=== PATIENT | male | born 1980 | race Caucasian/White ===

== ENCOUNTER 2018-02-03 10:22 | Outpatient (CLI) | payer OTHER | END 2018-02-03 10:23 | disposition home or self-care (01) | LOC: SC 10:22 | PROVIDERS: ATTEND Internal Medicine Pulmonary Disease | DX: G47.30 Sleep apnea, unspecified (principal); G47.10 Hypersomnia, unspecified; R06.83 Snoring; G47.8 Other sleep disorders | CPT/HCPCS: 99203; 99212 ==

== ENCOUNTER 2018-03-01 19:00 | Outpatient (CLI) | payer OTHER | END 2018-03-01 19:01 | disposition home or self-care (01) | LOC: SC 19:00 | PROVIDERS: ATTEND Internal Medicine Pulmonary Disease | DX: G47.33 Obstructive sleep apnea (adult) (pediatric) (principal); G47.61 Periodic limb movement disorder | CPT/HCPCS: 95810 ==

== ENCOUNTER 2018-03-26 09:09 | Outpatient (CLI) | payer OTHER | END 2018-03-26 09:10 | disposition home or self-care (01) | LOC: SC 09:09 | PROVIDERS: ATTEND Nurse Practitioner Family | DX: G47.33 Obstructive sleep apnea (adult) (pediatric) (principal); G47.61 Periodic limb movement disorder | CPT/HCPCS: 99212; 99214 ==

== ENCOUNTER 2018-06-03 09:59 | Outpatient (CLI) | payer OTHER | END 2018-06-03 10:00 | disposition home or self-care (01) | LOC: SC 09:59 | PROVIDERS: ATTEND Nurse Practitioner Family | DX: G47.33 Obstructive sleep apnea (adult) (pediatric) (principal) | CPT/HCPCS: 99212; 99214 ==

== ENCOUNTER 2018-07-09 08:31 | Outpatient (CLI) | payer OTHER | END 2018-07-09 08:32 | disposition home or self-care (01) | LOC: SC 08:31 | PROVIDERS: ATTEND Nurse Practitioner Family | DX: G47.33 Obstructive sleep apnea (adult) (pediatric) (principal) | CPT/HCPCS: 99212; 99214 ==

== ENCOUNTER 2018-08-12 14:41 | Outpatient (CLI) | payer OTHER | END 2018-08-12 14:42 | disposition home or self-care (01) | LOC: SC 14:41 | PROVIDERS: ATTEND Nurse Practitioner Family | DX: G47.33 Obstructive sleep apnea (adult) (pediatric) (principal) | CPT/HCPCS: 99212; 99214 ==

== ENCOUNTER 2018-10-06 16:10 | Outpatient (CLI) | payer OTHER | END 2018-10-06 16:11 | disposition home or self-care (01) | LOC: SC 16:10 | PROVIDERS: ATTEND Nurse Practitioner Family | DX: G47.33 Obstructive sleep apnea (adult) (pediatric) (principal) | CPT/HCPCS: 99212; 99214 ==

== ENCOUNTER 2019-05-04 13:40 | Outpatient (CLI) | payer OTHER | END 2019-05-04 13:41 | disposition home or self-care (01) | LOC: SC 13:40 | PROVIDERS: ATTEND Nurse Practitioner Family | DX: G47.33 Obstructive sleep apnea (adult) (pediatric) (principal) | CPT/HCPCS: 99212; 99214 ==

== ENCOUNTER 2019-06-17 11:08 | Outpatient (CLI) | payer OTHER ==
--- NOTE | 2019-06-17 12:09 | SLEEP CARE CONSULTATION ---
Information from patient questionnaire entered by Bonnie Abraham. I have reviewed and concur with the information entered by Bonnie Abraham. This document represents the service I personally performed and the decisions made by me, Kaylee Ramey, RN, MSN, ACCOUNTS RECEIVABLE BOOKKEEPER. History of Present Illness Previous diagnosis: Moderate, Obstructive Sleep Apnea-Hypopnea Syndrome AHI: 26.4 Reason for CPAP/BiPAP follow up: one month, other (6 week) Equipment type: CPAP Equipment obtained from: [facility] Mask style: Nasal (Wisp) Mask brand: Respironics Backup mask available: Yes (other style) Last cushion change: 2 months HPI additional information: Review of past visit notes shows that the pressure resolved air hunger. He feels he is using CPAP better but still off face in morning. He saw an hotel front office manager and saw impacted sinuses on CT scan and elevation of IGE - seasonal allergies with grass. He is to start a steroid and sinus rinse next week when prescription ready. If no better with above treatment he will be referred to ENT for surgery. He wonders if his sinus congestion is reason why he pulls off mask in his sleep. He already does a normal [place] pot rinse daily and as needed. CPAP Compliance Data - Data Reviewed with Patient Average duration of nightly device use: 3.7 Compliance rate %: 23.3 (30 days) Current pressure setting (cmH2O): 10 Humidity settin Heated hose settin Average residual AHI: 0.3 Average large leak: 6 secs Subjective Missed days of use due to: reports: other (camping and falling asleep without CPAP. ) Patient concerns: reports: mask discomfort (mild discomfort from over tightening mask and mask lines), mask leak noise (while trying to get mask fitted to sleep on side), nasal congestion (chronic ). denies: aerophagia, air blowing in eyes, condensation in mask/hose, dry mouth, nose, throat, epistaxis Observed to snore while using device: No On therapy, patient: reports: sleeping better, awakening more refreshed, being more awake and alert during the day, more rested overall. denies: drowsiness while driving Initial [place] Sleepiness Scale score: 13 Current [place] Sleepiness Scale score: 9 Allergies and Home Medications Known drug allergies: No Home medication list reviewed: Yes Allergy and home medication list: Uloric 40mg tab one daily Zyrtec 10mg HS Review of Systems Review of systems same as previous: Yes Physical Exam Blood Pressure: 120/70 Cuff size: long Heart Rate: 88 O2 Saturation: 96 Height: 5 ft 9 in Weight (kg): 106.685 kg (with fatigues and boots) Body Mass Index: 34.7 BMI Classification: Class 1 Impression and Plan 1. Obstructive Sleep Apnea-Hypopnea Syndrome, moderate with better treatment compliance and good apnea control. He has increased compliance from 6% to 23.3%. The air hunger was reduced with pressure change. On CPAP therapy, the patient has better sleep quality and is more rested overall. To reduce patient pulling off mask during the night, I discussed the importance of not overtightening mask as shown with sample mask with proper adjustment practices reviewed and shown. Juan Luis hayes is also advised to consider a CPAP pillow as his mask moves when sleeps on his side, his preferred position. I also agree with patient that some of his pulling off mask may be due to sinus congestion. In addition, he is advised to change mask cushion at least monthly and if needed every 2 weeks to improve mask fit and decreased mask leaks. To prevent falling asleep without CPAP, he can put the mask on his pillow. He can also put an alarm on his phone for bedtime. He is also encouraged to ask spouse to remind him. I also encouraged him to use CPAP while camping since he has an RV for source of power. Otherwise a battery for the CPAP can be obtained. He was also reminded how alcohol ingestion before can increase apnea risk as well as increase fragmentation of sleep. Patient's apnea severity and rationale for treatment to reduce apnea, improve sleep quality and reduce cardiovascular and cerebrovascular events was reviewed. Since he is having difficulty getting supplies from [facility] and now they are considered out of network, I will make a [facility] transfer RX. My activity coordinator will inform him of national companies options that he can use. If any problems with new supplier, he can transfer again. * Continue CPAP pressure at 10 cmH2O * Transfer to new DME * Adjust mask as instructed. * CPAP pillow * Change mask cushion * Implement measures to use CPAP with all sleep. * Notify me if snoring with mask or feeling that the pressure is too much or too little * Return for follow up in 2 months, or sooner if concerns arise I spent 100% of this 35 minute visit face to face with the patient with greater than 50% of this was spent time counseling the patient and coordination of care.
[2019-06-17 12:10] VITALS: BP 120/70
== END 2019-06-17 11:09 | disposition home or self-care (01) ==
LOC: SC 11:08
PROVIDERS: ATTEND Nurse Practitioner Family
DX: G47.33 Obstructive sleep apnea (adult) (pediatric) (principal)
CPT/HCPCS: 99212; 99214

== ENCOUNTER 2019-08-20 13:18 | Outpatient (CLI) | payer OTHER ==
[2019-08-20 14:52] VITALS: BP 120/80
--- NOTE | 2019-08-20 14:52 | SLEEP CARE CONSULTATION ---
Information from patient questionnaire entered by Bonnie Abraham. I have reviewed and concur with the information entered by Bonnie Abraham. This document represents the service I personally performed and the decisions made by me, Kaylee Ramey, RN, MSN, HIGH SCHOOL BUSINESS TEACHER. History of Present Illness Previous diagnosis: Moderate, Obstructive Sleep Apnea-Hypopnea Syndrome AHI: 26.4 Reason for CPAP/BiPAP follow up: other (2 month) Equipment type: CPAP Equipment obtained from: [employer] Mask style: Nasal (Wisp) Mask brand: Respironics HPI additional information: The transfer to [facility] went well in getting supplies after 3 weeks. He feels he is using CPAP more frequently. He still waking up with mask off but had a couple a whole nights of sleep with CPAP. Has seen banking paralegal for recurrent sinusitus and treatment given. Next step is CT and referral to ENT. He has had sinus surgery in past. CPAP Compliance Data - Data Reviewed with Patient Average duration of nightly device use: 2.25 Compliance rate %: 6.7 Current pressure setting (cmH2O): 10 Humidity settin Heated hose settin Average residual AHI: 0.2 Average large leak: 21 secs Subjective Missed days of use due to: reports: illness (hospitalization of mother and . ), other Patient concerns: reports: mask discomfort (once only from overtightening. ), nasal congestion (uses twila pot bid). denies: aerophagia, air blowing in eyes, mask leak noise, condensation in mask/hose Observed to snore while using device: No Current pressure setting perceived as: comfortable On therapy, patient: reports: sleeping better, awakening more refreshed, more rested overall. denies: drowsiness while driving Initial [place] Sleepiness Scale score: 13 Current [place] Sleepiness Scale score: 12 Allergies and Home Medications Known drug allergies: No Home medication list reviewed: Yes Allergy and home medication list: Uloric 40mg tab one daily Zyrtec 10mg HS Flonase nasal spray twice a day Review of Systems Review of systems same as previous: No (seen by banking paralegal -given steroid course / antibiotics for sinusitus then CT) Physical Exam Blood Pressure: 120/80 Cuff size: long Heart Rate: 80 O2 Saturation: 98 Height: 5 ft 9 in Weight: 234 lb 6.4 oz Body Mass Index: 34.6 BMI Classification: Obesity Class 1 Impression and Plan 1. Obstructive Sleep Apnea-Hypopnea Syndrome, moderate, with poor treatment compliance and good apnea control. On CPAP therapy, the patient has better sleep quality and is more rested overall. He has improved use of CPAP but compliance still poor. It is unclear why patient continues to pull off his mask. However due to his history of sinus issues and nasal allergies, I again discussed the use of a full face mask as he may be pulling off mask due to difficulty breathing through his nose. Samples shown, he was fitted with a medium [place] full face mask. He is to contact his DME if this is preferred mask for replacement cushions. The goal is use of CPAP through the night for maximum benefit of treatment. The pressure can sometimes feel different changing from nasal to full face mask and to call if any concerns. I also discussed increasing humidity to reduce nasal congestion. Patient's apnea severity and rationale for treatment to reduce apnea, improve sleep quality and reduce cardiovascular and cerebrovascular events was reviewed. * Continue CPAP pressure at 10 cmH2O * Try new mask * Adjust humidity * Notify me if snoring with mask or feeling that the pressure is too much or too little * Attempt to lose weight * Return for follow up in 2 months , or sooner if concerns arise I spent 100% of this [20][30] minute visit face to face with the patient with greater than 50% of this was spent time counseling the patient and coordination of care.
== END 2019-08-20 13:19 | disposition home or self-care (01) ==
LOC: SC 13:18
PROVIDERS: ATTEND Nurse Practitioner Family
DX: G47.33 Obstructive sleep apnea (adult) (pediatric) (principal); E66.9 Obesity, unspecified; Z68.34 Body mass index [BMI] 34.0-34.9, adult
CPT/HCPCS: 99212; 99214

== ENCOUNTER 2019-12-16 15:18 | Outpatient (CLI) | payer OTHER ==
[2019-12-16 16:13] VITALS: BP 114/70
--- NOTE | 2019-12-16 16:13 | SLEEP CARE CONSULTATION ---
Information from patient questionnaire entered by Bonnie Abraham. I have reviewed and concur with the information entered by Bonnie Abraham. This document represents the service I personally performed and the decisions made by me, Kaylee Ramey, RN, MSN, CHIEF BUSINESS OFFICER. History of Present Illness Previous diagnosis: Moderate, Obstructive Sleep Apnea-Hypopnea Syndrome AHI: 26.4 Reason for follow up: other (2 month) Equipment type: CPAP Equipment obtained from: [employer] Mask style: Nasal Mask brand: Respironics Backup mask available: Yes Last cushion change: none since fitting - ordered recently HPI additional information: The [place] mask is working better. He is pulling off mask less. He has been checking his CPAP use and is surprised that numbers were less than what he recalls. CPAP Compliance Data - Data Reviewed with Patient Average duration of nightly device use: 4.4 Compliance rate %: 46.7 (60 days) Current pressure setting (cmH2O): 10 Humidity settin Heated hose settin Average residual AHI: 1.0 Average large leak: 3 min 20 sec Subjective Patient concerns: reports: nasal congestion (rhinoscopy has been planned for January by forestry farm laborer / Lindy Christopher bid most days ), dry mouth, nose, throat (occasional dry mouth and usually associated with nasal congestion ). denies: aerophagia Initial [place] Sleepiness Scale score: 13 Current [place] Sleepiness Scale score: 9 Allergies and Home Medications Known drug allergies: No Home medication list reviewed: Yes (no changes) Review of Systems Review of systems same as previous: Yes Physical Exam Blood Pressure: 114/70 Cuff size: long Heart Rate: 76 O2 Saturation: 96 Height: 5 ft 9 in Weight: 244 lb (with boots) Weight change since last visit: gained 10 pounds Body Mass Index: 36.0 BMI Classification: Obese Impression and Plan 1. Obstructive Sleep Apnea-Hypopnea Syndrome, moderate, with fair treatment compliance and good apnea control. On CPAP therapy, the patient has better sleep quality and is more rested overall. He has improved CPAP use by 40%. The times not used were due to traveling. Short nights were due to pulling off mask in sleep. This is less with new mask but still a few times a week. Since he is still struggling with nasal congestion and was unable to change his humidity, I showed him how to increase his humidity on sample device. The heated hose can be adjusted higher if condensation with higher humidity setting. In addition, a steamy shower before bed will often assist nasal drainage that he already applies as well as Lindy to facilitate nasal breathing. Reducing nasal albin estion with higher humidity may help reduce mask being pulled off in sleep until re-evaluated by ENT. Printed instructions given on how to change humidity and heated hose settings with rationale explaining why to change. To improve CPAP use while traveling and camping, I gave him information on a CPAP battery and adaptors for power. The humdifier should not be used with the battery and turned off as it draws too much power. For moisture, he can use saline nasal spray. I gave him a prescription for the batterry incase his insurance covers it. He has also gained weight, increasing obesity BMI and apnea risk. Continued weight gain could increase his CPAP requirements as well. He is advised to lose weight. If significant weight loss, symptoms to report for CPAP pressure adjustment discussed. Patient's apnea severity and rationale for treatment to reduce apnea, improve sleep quality and reduce cardiovascular and cerebrovascular events was reviewed. I also reviewed the benefit of consistent device use of CPAP for . * Continue CPAP pressure at 10 cmH2O * Implement methods to reduce nasal congestion. * Consider CPAP battery * Notify me if snoring with mask or feeling that the pressure is too much or too little * Attempt to lose weight * Call this office if any problems using CPAP * Return for follow up in 1 -2 months , or sooner if concerns arise Time Spent with Patient (minutes): 32 I spent 100% of this visit face to face with the patient with greater than 50% of this was spent time counseling the patient and coordination of care.
== END 2019-12-16 15:19 | disposition home or self-care (01) ==
LOC: SC 15:18
PROVIDERS: ATTEND Nurse Practitioner Family
DX: G47.33 Obstructive sleep apnea (adult) (pediatric) (principal); E66.9 Obesity, unspecified; Z68.36 Body mass index [BMI] 36.0-36.9, adult
CPT/HCPCS: 99212; 99214

== ENCOUNTER 2020-06-13 07:29 | Outpatient (CLI) | payer OTHER | END 2020-06-13 07:30 | disposition home or self-care (01) | LOC: LAB 07:29 | PROVIDERS: ATTEND Allergy & Immunology | DX: Z11.59 Encounter for screening for other viral diseases (principal) ==

== ENCOUNTER 2020-08-18 08:41 | Outpatient (CLI) | payer OTHER ==
[2020-08-18 09:37] VITALS: BP 120/80
--- NOTE | 2020-08-18 09:37 | SLEEP CARE CONSULTATION ---
Information from patient questionnaire entered by Bonnie Abraham. I have reviewed and concur with the information entered by Bonnie Abraham. This document represents the service I personally performed and the decisions made by me, Kaylee Ramey, RN, MSN, DIRT SUPERVISOR. History of Present Illness Service Date and Time: 08/18/2020 0841 Previous diagnosis: Moderate, Obstructive Sleep Apnea-Hypopnea Syndrome AHI: 26.4 (in 2018) Reason for follow up: other (2 month with pressure change) Equipment type: CPAP Equipment obtained from: [facility] (getting supplies as needed) Mask style: Full face Mask brand: Respironics ([place]) Backup mask available: Yes (old mask ) Last cushion change: 2 weeks ago Prior sleep studies: Yes Year and Where: 2017 - [facility] Type of Sleep Study: Polysomnography Sleep Study - Results Prior sleep studies: Yes Year and Where: 2017 [facility] CPAP Compliance Data - Data Reviewed with Patient Average duration of nightly device use: 5.25 Compliance rate %: 63.3 (60 days) Current pressure setting (cmH2O): 8-10 Humidity settin Heated hose settin Average residual AHI: 0.9 Average large leak: 3 min 37 sec Subjective Missed days of use due to: reports: other (I don't know) Patient concerns: reports: epistaxis (continues scant as before CPAP - sees ENT), other (pulling off mask in sleep- unknown reason but after SSRI and pressure change for future weight loss. ). denies: aerophagia, mask discomfort, air blowing in eyes, mask leak noise, condensation in mask/hose, nasal congestion, dry mouth, nose, throat Observed to snore while using device: No Current pressure setting perceived as: comfortable (but took a while to get used to - with discussion, will increase setting) On therapy, patient: reports: sleeping better, awakening more refreshed, being more awake and alert during the day, more rested overall. denies: drowsiness while driving Initial [place] Sleepiness Scale score: 13 (in 2018) Current [place] Sleepiness Scale score: 8 Allergies and Home Medications Known drug allergies: No Home medication list reviewed: Yes Allergy and home medication list: Lexapro 10mg daily Flomax unknown dose Hs Review of Systems Review of systems same as previous: No (treated for PTSD withSSRI with benefit noted ) Physical Exam Blood Pressure: 120/80 Cuff size: long Heart Rate: 79 O2 Saturation: 97 Height: 5 ft 9 in Weight: 267 lb 11.2 oz (with boots and fatigues ) Weight change since last visit: gained 15 pounds Body Mass Index: 39.5 BMI Classification: Obese Impression and Plan 1. Obstructive Sleep Apnea-Hypopnea Syndrome, moderate, with better treatment compliance at 63% and excellent apnea control. On CPAP therapy, the patient has better sleep quality and is more rested overall. He has increased his compliance by 3% by putting on mask every night. However,he is pulling off mask since pressure change and SSRI thus affecting his compliance. So I the pressure will be adjusted to his current mean of 9cmH20 to [id number] maximum pressure to see if will resolve pulling off mask. He is to call me if pressure comfort no better and agreed with plan. Then the pressure range will be returned to original of [id number]. The pressure change was done to accommodate his future weight loss but he has instead gained weight since last seen and placed on an SSRI for PTSD. He has also awakened on couch a couple of times since SSRI started. Thus he was advised to discuss the weight gain and possible somnambulism with his psychiatrist at appointment next week. Currently patients BMI is 36.0 obesity class . He is advised to discuss diet consultation referral with PCP as his increase in exercise does not seem enough to assist him to lose weight. I discussed how it is a combination of diet change and exercise to succeed in weight loss. I again reviewed the risks of increased weight to his overall health and his apnea and CPAP pressure. The patient's CPAP pressure range should accommodate some weight loss. Symptoms to report for additional pressure adjustment discussed. Patient's apnea severity and rationale for treatment to reduce apnea, improve sleep quality and reduce cardiovascular and cerebrovascular events was reviewed. I also reviewed the benefit of consistent device use of CPAP for his PTSD. * * Changeauto CPAP pressure to 9-10 cmH2O * Notify me if snoring with mask or feeling that the pressure is too much or too little * Attempt to lose weight * Follow up with PCP for safety and security manager referral * Discuss weight and sleep walking with psychiatrist. * Call this office if any problems using CPAP * Return for follow up in 1-2 months , or sooner if concerns arise Visit Type: In Office Time Spent with Patient (minutes): 33 Provider Statement: I spent 100% of the Face to Face Visit with the patient with greater than 50% spent counseling the patient and coordination of care.
== END 2020-08-18 08:42 | disposition home or self-care (01) ==
LOC: SC 08:41
PROVIDERS: ATTEND Nurse Practitioner Family
DX: G47.33 Obstructive sleep apnea (adult) (pediatric) (principal); E66.9 Obesity, unspecified; Z68.36 Body mass index [BMI] 36.0-36.9, adult
CPT/HCPCS: 99212; 99214

== ENCOUNTER 2020-10-13 11:30 | Outpatient (CLI) | payer OTHER ==
--- NOTE | 2020-10-13 11:29 | SLEEP CARE CONSULTATION ---
Information from patient questionnaire entered by Bonnie Abraham. I have reviewed and concur with the information entered by Bonnie Abraham. This document represents the service I personally performed and the decisions made by me, Kaylee Ramey, RN, MSN, BAND AID MACHINE OPERATOR. History of Present Illness Service Date and Time: 10/13/2020 1100 Previous diagnosis: Moderate, Obstructive Sleep Apnea-Hypopnea Syndrome AHI: 26.4 (in 2018) Reason for follow up: other (2 month with pressure change) Equipment type: CPAP Equipment obtained from: [employer] (getting supplies as needed) Mask style: Full face Mask brand: Respironics Backup mask available: Yes (old mask ) Last cushion change: 2 months Prior sleep studies: Yes Year and Where: 2018 - [facility] Type of Sleep Study: Polysomnography CPAP Compliance Data - Data Reviewed with Patient Average duration of nightly device use: 6 hr 5 min Compliance rate %: 80 (60 days) Current pressure setting (cmH2O): 9-10 Humidity settin Heated hose settin Average residual AHI: 1.2 Average large leak: 2 min 37 sec Subjective Patient concerns: reports: dry mouth, nose, throat (a few times dry mouth - humidity is at maximum and heated hose at 1. ), epistaxis (scant epitaxis for years before CPAP - sees ENT next week / uses [place] bid, Flonase Bid and nasal moisturizer daily. ), other (pulling off mask less only 1 time a week -has hose bryson to keep hose out of way.). denies: aerophagia, mask discomfort, air blowing in eyes, mask leak noise, condensation in mask/hose, nasal congestion Observed to snore while using device: No Current pressure setting perceived as: comfortable On therapy, patient: reports: sleeping better, awakening more refreshed, being more awake and alert during the day, more rested overall. denies: drowsiness while driving Initial [place] Sleepiness Scale score: 13 (in 2018) Current [place] Sleepiness Scale score: 6 Allergies and Home Medications Known drug allergies: No Home medication list reviewed: Yes (added Flonase nasal spray bid) Review of Systems Review of systems same as previous: Yes (no changes) Physical Exam Height: 5 ft 9 in Weight: 260 lb (stable) Body Mass Index: 38.4 BMI Classification: Obese Impression and Plan 1. Obstructive Sleep Apnea-Hypopnea Syndrome, moderate, with good treatment compliance and good apnea control. On CPAP therapy, the patient has better sleep quality and is more rested overall. He has improved his CPAP use from 63% to 80%. Compliance was affected by him pulling off mask in the night which has reduced but still occurs about weekly. He has a hose bryson to keep hose out of way of sleep which has also helped. Dryness I advised him to use his nasal moisturizer twice a day instead of daily. He sees his ear nose throat doctor next week and he was advised to discuss if there was any other treatment indicated after exam. Also he is advised of risk of nasal irritation from Flonase recently prescribed and to also discuss with is ENT. Patient agreed with plan. I again reviewed his obesity and associated health risk factors. He is advised to lose weight and consider a diet consultation from his PCP. He states he is on a family diet. And that has been hard to lose weight since all the gyms have been closed. I again reviewed usual diet guidelines to reduce calorie intake. I again reviewed how his weight affects his apnea severity and CPAP pressure requirements. Symptoms to report as he loses weight to change CPAP pressure was discussed. Patient's apnea severity and rationale for treatment to reduce apnea, improve sleep quality and reduce cardiovascular and cerebrovascular events was reviewed. * Continue auto CPAP pressure at 9-10 cmH2O * Increase frequency of nasal moisturizer * Notify me if snoring with mask or feeling that the pressure is too much or too little * Attempt to lose weight * Call this office if any problems using CPAP * Return for follow up in 6 months, or sooner if concerns arise Visit Type: Telehealth Video Video Type: [place] Patient Location: Home Location of Provider: Home Patient agrees and consents to this telehealth visit type: Yes Patient agrees to have their insurance billed: Yes Time Spent with Patient (minutes): 17 Provider Statement: I spent 100% of the Telehealth Video Call with the patient with greater than 50% spent counseling the patient and coordination of care.
== END 2020-10-13 11:31 | disposition home or self-care (01) ==
LOC: SC 11:30
PROVIDERS: ATTEND Nurse Practitioner Family
DX: G47.33 Obstructive sleep apnea (adult) (pediatric) (principal); E66.9 Obesity, unspecified; Z68.38 Body mass index [BMI] 38.0-38.9, adult

== ENCOUNTER 2021-04-05 08:00 | Outpatient (CLI) | payer OTHER ==
[2021-04-05 17:51] LABS: HCT - HEMATOCRIT 43.3 % (42.0-52.0); HGB - HEMOGLOBIN 14.4 g/dL (14.0-18.0); MEAN CORPUSCULAR HEMOGLOBIN 33.3 pg (27.0-31.0); MEAN CORPUSCULAR HGB CONC 33.3 g/dL (32.0-36.0); MEAN PLATELET VOLUME 10.4 fL (7.4-11.4); RED BLOOD COUNT 4.33 10^6/uL (4.70-6.10); RED CELL DISTRIBUTION WIDTH 12.7 % (12.0-15.0); WHITE BLOOD COUNT 7.8 x10^3/uL (4.8-10.8)
[2021-04-05 18:01] LABS: BUN - BLOOD UREA NITROGEN 22 mg/dL (6-20); CALCIUM 9.2 mg/dL (8.5-10.3); CARBON DIOXIDE - CO2 26 mmol/L (21-32); CHLORIDE 105 mmol/L (101-111); CREATININE 0.9 mg/dL (0.6-1.2); GFR - MDRD 93 (>89); GLUCOSE 96 mg/dL (70-100); POTASSIUM 4.2 mmol/L (3.5-5.0); SODIUM 137 mmol/L (135-145)
[2021-04-05 18:25] LABS: CRP - C-REACTIVE PROTEIN < 1.0 mg/dL (0-1.0)
== END 2021-04-05 23:59 | disposition home or self-care (01) ==
LOC: LAB.WCP 08:00
PROVIDERS: ATTEND Family Medicine
DX: M10.9 Gout, unspecified (principal)
CPT/HCPCS: 36415; 80048; 84550; 85027; 85651; 86140

== ENCOUNTER 2021-04-06 08:00 | Outpatient (CLI) | payer OTHER | END 2021-04-06 23:59 | disposition home or self-care (01) | LOC: LAB.WCP 08:00 | PROVIDERS: ATTEND Family Medicine | DX: Z20.822 Contact with and (suspected) exposure to COVID-19 (principal) ==